=== PATIENT | male | born 1965 | race Native Hawaiian/Other Pacific Islander ===

== ENCOUNTER 2016-10-20 22:35 | Observation (INO) | payer SELFPAY ==
[2016-10-20 22:47] VITALS: RESP 16; O2SAT 98
--- NOTE | 2016-10-20 23:22 | C.PDOC ---
History Of Present Illness 51 year old male presents to the ED via EMS for public intoxication. Patient also states he has some left ankle pain and denies any other complaints at this time. Time Seen by Provider: 10/20/16 23:22 Chief Complaint (Nursing): Lower Extremity Problem/Injury History Per: Patient History/Exam Limitations: no limitations Onset/Duration Of Symptoms: Hrs Current Symptoms Are (Timing): Still Present Severity: Mild Past Medical History Reviewed: Historical Data, Nursing Documentation, Vital Signs Vital Signs: Last Vital Signs Temp 98.0 F 10/21/16 04:02 Pulse 75 10/21/16 04:02 Resp 16 10/21/16 04:02 BP 118/65 10/21/16 04:02 Pulse Ox 98 10/21/16 04:02 - Medical History PMH: HTN - [facility] Procedures INTRODUCTION OF SERUM/TOX/VACCINE INTO MUSCLE, PERC APPROACH (09/14/16) Family History: States: Unknown Family Hx - Social History Hx Alcohol Use: Yes (LAST DRINK OF BACARDI LAST NIGHT) Hx Substance Use: No Review Of Systems Constitutional: Positive for: Other (+Intoxicated). Negative for: Fever, Chills Musculoskeletal: Positive for: Other (+Left ankle pain). Negative for: Back Pain Neurological: Negative for: Weakness, Numbness Physical Exam - Physical Exam Appears: Non-toxic, No Acute Distress, Other (+AOB) Skin: Warm, Dry Head: Atraumatic, Normacephalic Oral Mucosa: Moist Extremity: Normal ROM, Tenderness (+Reproducible tenderness to the left ankle), No Calf Tenderness, Capillary Refill (< 2 seconds), No Deformity, Swelling (+ Mild swelling to the left ankle) Pulses: Left Dorsalis Pedis: Normal, Right Dorsalis Pedis: Normal Neurological/Psych: Oriented x3 ED Course And Treatment O2 Sat by Pulse Oximetry: 98 (Room air) Pulse Ox Interpretation: Normal - Other Rad ankle X-Ray: Interpreted by Me, Viewed By Me Interpretation: no fx or dislocation, sts Progress Note: Left Ankle X-ray ordered and reviewed. Reevaluation Time: 05:26 Reassessment Condition: Improved ED OBSERVATION Discharge: Yes Date of observation admission: 10/20/16 Time of observation admission: 23:45 - Observation admission statement Patient is being placed in observation because:: acute alcohol intoxication - Goals of Observation Goals of observation are:: sobriety - Progress Note Progress Note: 10/20/16 23:45 vitals stable, 10/21/16 01:46 no complaints 10/21/16 03:46 vitals stable Disposition Counseled Patient/Family Regarding: Studies Performed, Diagnosis, Need For Followup - Disposition Disposition: HOME/ ROUTINE Disposition Time: 23:22 Condition: FAIR - Clinical Impression Clinical Impression: Alcohol intoxication, Ankle sprain - Scribe Statement The provider has reviewed the documentation as recorded by the Scribe Yamile Wolf. Provider Attestation: All medical record entries made by the Scribe were at my direction and personally dictated by me. I have reviewed the chart and agree that the record accurately reflects my personal performance of the history, physical exam, medical decision making, and the department course for this patient. I have also personally directed, reviewed, and agree with the discharge instructions and disposition.
[2016-10-21 04:03] VITALS: BP 118/65; PULSE 75; TEMP 98
--- NOTE | 2016-10-21 11:22 | RAD ---
PROCEDURE: Left Ankle Radiographs. HISTORY: Pain COMPARISON: None available. FINDINGS: BONES: Osseous demineralization limits evaluation for acute fracture lines. No acute displaced fracture. JOINTS: No dislocation. SOFT TISSUES: Soft tissue swelling about the ankle. Vascular calcifications. No evidence of radiopaque foreign body. OTHER FINDINGS: None. IMPRESSION: Osseous demineralization. Soft tissue swelling about the ankle. No acute displaced fracture, dislocation, or significant joint effusion identified. If symptoms persist or if there is clinical concern, x-ray follow-up in 7-10 days should be considered.
== END 2016-10-21 05:27 | disposition home or self-care (01) ==
LOC: C.ER 22:35 → C.9OBSV 23:43
PROVIDERS: ADMIT Emergency Medicine; ATTEND Emergency Medicine
DX: F10.120 Alcohol abuse with intoxication, uncomplicated (principal); S93.402A Sprain of unspecified ligament of left ankle, initial encounter; X58.XXXA Exposure to other specified factors, initial encounter
CPT/HCPCS: 73610; 99284; G0378